=== PATIENT | male | born 1975 | race Caucasian/White ===

== ENCOUNTER → 2021-07-31 | Outpatient (CLI) | payer BC ==
--- NOTE | 2021-07-31 21:58 | MR ---
EXAMINATION TYPE: MR tspine/lspine wo con DATE OF EXAM: 07/31/2021 COMPARISON: NONE HISTORY: Mid and low back pain that radiates down right leg. Back pain for 6 months into right buttoc ks per patient. TECHNIQUE: Multiplanar, multisequence imaging of the thoracic and lumbar spine are performed without IV contrast. FINDINGS: T-SPINE: FINDINGS: Spinal cord shows normal course, caliber, and signal as it courses the thoracic spine. Ve rtebral body heights and alignment are satisfactory. Disc space heights are maintained. Bone marrow s ignal intensity appears within normal limits. No significant posterior disc herniations are present o n sagittal images. Review of the axial images shows no significant spinal canal stenosis or neural foraminal narrowing at any thoracic level. No large disc herniation is seen. Visualized thorax and upper abdomen show no suspicious abnormality IMPRESSION: No significant abnormality is seen to account for patient's symptoms. Unremarkable study . L-SPINE: Sagittal images of the lumbar spine show vertebral body heights and alignment to appear satisfactory. There is disc desiccation L4-L5 and L5-S1 levels and mild disc space narrowing L5-S1 level with post erior annular tear. The conus medullaris is normal in position and signal ending superior L1 level. The bone marrow signal intensity is within normal limits. Axial images show T12-L1 through the L3-L4 levels to appear within normal limits. Axial images at the L4-L5 levels show broad-based right paracentral disc protrusion mildly effacing t he anterior thecal sac, patent bilateral neural foramina. Axial images at L5-S1 level show focal central disc protrusion but spinal canal is preserved and bila teral neural foramina are patent. Paraspinal muscle bulk is preserved. IMPRESSION: Mild degenerative changes in the lower lumbar spine as detailed above.
== END | disposition home or self-care (01) ==
LOC: RADMRIMAIN 17:23
PROVIDERS: ATTEND Orthopaedic Surgery Orthopaedic Surgery of the Spine
DX: M47.26 Other spondylosis with radiculopathy, lumbar region (principal); M51.17 Intervertebral disc disorders with radiculopathy, lumbosacral region
CPT/HCPCS: 72146; 72148